=== PATIENT | female | born 1970 | race Caucasian/White ===

== ENCOUNTER 2018-10-22 17:25 | Emergency (ER) | payer SELFPAY ==
[~2018-10-22] VITALS: Ht 157.5 cm; Wt 72.6 kg
[2018-10-22] MEDS ORDERED: ONCE DAILY1 EACH PO (17:59)
== END 2018-10-22 19:16 | disposition home or self-care (01) ==
LOC: ED 17:25
DX: S93.601A Unspecified sprain of right foot, initial encounter (principal); X58.XXXA Exposure to other specified factors, initial encounter; Z88.0 Allergy status to penicillin; Z88.5 Allergy status to narcotic agent; Z88.2 Allergy status to sulfonamides; Z88.1 Allergy status to other antibiotic agents; Z79.899 Other long term (current) drug therapy
CPT/HCPCS: 73630; 99283

== ENCOUNTER 2020-12-09 20:34 | Emergency (ER) | payer SELFPAY ==
[~2020-12-09] VITALS: Ht 157.5 cm; Wt 78.0 kg
[~2020-12-09 20:34] MED LIST: ONCE DAILY1 EACH PO
[2020-12-10] MEDS ORDERED: ZOFRAN4 MG PO (00:08)
== END 2020-12-10 00:27 | disposition home or self-care (01) ==
LOC: ED 20:34
DX: U07.1 COVID-19 (principal); Z88.0 Allergy status to penicillin; Z88.5 Allergy status to narcotic agent; Z88.2 Allergy status to sulfonamides; Z88.1 Allergy status to other antibiotic agents
CPT/HCPCS: 99283; A9270; C9803; U0003

== ENCOUNTER 2024-05-26 20:06 | Emergency (ER) | payer SELFPAY ==
[~2024-05-26] VITALS: Ht 157.5 cm; Wt 82.0 kg
[~2024-05-26 20:06] MED LIST changes: +BENZONATATE200 MG PO; +ZITHROMAX250 MG PO; +ZOFRAN4 MG PO
[2024-05-26] MEDS ORDERED: IBUPROFEN 800 MG TAB PO ONE (20:45)
[2024-05-26] MEDS ORDERED: KETOROLAC TROMETHAMINE 60 MG/2 ML VIAL IM ONE (20:45)
[2024-05-26] MEDS ORDERED: HYDROCODONE/ACETA 7.5/325 TAB PO ONE (21:30)
[2024-05-26] MEDS ORDERED: HYDROCODONE BIT/ACETAMINOPHEN 5/325 MG 1 TAB HOME.PACK PO ONE (21:45)
[2024-05-26] MEDS ORDERED: HYDROCODON-ACE1 EA10 PO (21:45)
[2024-05-26 22:00] VITALS: BP 118/83
--- NOTE | 2024-05-27 10:59 | EKG ---
[facility] [address] [facility] [place], [place] [address] Signed Normal sinus rhythm Normal ECG No previous ECGs available Confirmed by Boston Jennings DO ([id number]) on 05/27/2024 10:59:16 AM Electronically Signed By: BOSTON JENNINGS DO 05/27/24 1059 PATIENT NAME: DAYANNA CORTEZ Electrocardiogram DATE OF : 68 PHYSICIAN: BOSTON JENNINGS DO REPORT #: [id number] REPORT IS CONFIDENTIAL AND NOT TO BE RELEASED WITHOUT AUTHORIZATION
== END 2024-05-26 22:02 | disposition home or self-care (01) ==
LOC: ED 20:06
DX: S20.211A Contusion of right front wall of thorax, initial encounter (principal); Z91.030 Bee allergy status; Z91.040 Latex allergy status; Z88.0 Allergy status to penicillin; Z88.5 Allergy status to narcotic agent; Z88.2 Allergy status to sulfonamides; W01.0XXA Fall on same level from slipping, tripping and stumbling without subsequent striking against object, initial encounter
CPT/HCPCS: 71045; 93005; 93010; 96372; 99283-25; A9270; J1885

== ENCOUNTER 2024-06-07 16:23 | Emergency (ER) | payer OTHER ==
[~2024-06-07] VITALS: Ht 157.5 cm; Wt 81.1 kg
[~2024-06-07 16:23] MED LIST changes: +HYDROCODON-ACE1 EA10 PO
--- OUTSIDE RECORDS SUMMARY | 2024-06-07 16:30 | XMS ---
PreManage Notification: DAYANNA CORTEZ [employer] Events No recent Security Events currently on file CRITERIA MET - [facility] - 2 Visits in 30 Days CARE PROVIDERS [facility] 05/07/2019-Current PHONE: [phone] Rob has no Care Guidelines for this patient. Melody VISIT COUNT (12 MO.) [address] [place] TOTAL 4 NOTE: Visits indicate total known visits. ED/UCC VISIT TRACKING (12 MO.) 06/07/2024 16:24 [facility] TYPE: Emergency COMPLAINT: - CHEST INJURY 05/26/2024 20:07 [facility] TYPE: Emergency COMPLAINT: - FALL/RIB PAIN DIAGNOSES: - Allergy status to narcotic agent - Allergy status to penicillin - Allergy status to sulfonamides - Bee allergy status - Contusion of right front wall of thorax, initial encounter - Fall on same level from slipping, tripping and stumbling without subsequent striking against object, initial encounter - Latex allergy status - Other chest pain 11/25/2023 21:06 [facility] TYPE: Emergency DIAGNOSES: - Adhesive capsulitis of unspecified shoulder - Unspecified injury of muscle(s) and tendon(s) of the rotator cuff of right shoulder, initial encounter - Unspecified injury of right shoulder and upper arm, initial encounter - R Shoulder Pain - Shoulder Injury 11/25/2023 19:28 [facility] [place] TYPE: Emergency DIAGNOSES: - Pain in right shoulder - SHOULDER PAIN INPATIENT VISIT TRACKING (12 MO.) No inpatient visits to display in this time frame [email or web address]
[2024-06-07] MEDS ORDERED: HYDROCODONE BIT/ACETAMINOPHEN 5/325 MG 1 TAB HOME.PACK PO ONE (19:30)
[2024-06-07] MEDS ORDERED: HYDROCODONE/ACETA 5/325 TAB PO ONE (19:30)
[2024-06-07] MEDS ORDERED: ONDANSETRON 4 MG TAB ODT SL ONE (19:30)
[2024-06-07 20:26] VITALS: BP 107/74
--- NOTE | 2024-06-08 17:59 | EKG ---
[facility] [address] [facility] [place] [address] Signed Sinus bradycardia Otherwise normal ECG When compared with ECG of 26-MAY-2024 21:17, No significant change was found Confirmed by Fco Jennings DO ([id number]) on 06/08/2024 5:58:54 PM Electronically Signed By: FCO JENNINGS DO 06/08/24 1759 PATIENT NAME: DAYANNA CORTEZ [place] Electrocardiogram DATE OF : 68 PHYSICIAN: FCO JENNINGS DO REPORT #: [id number] REPORT IS CONFIDENTIAL AND NOT TO BE RELEASED WITHOUT AUTHORIZATION
== END 2024-06-07 20:26 | disposition home or self-care (01) ==
LOC: ED 16:23
DX: S29.9XXA Unspecified injury of thorax, initial encounter (principal); W17.2XXA Fall into hole, initial encounter; Z88.0 Allergy status to penicillin; Z91.030 Bee allergy status; Z88.5 Allergy status to narcotic agent; Z88.1 Allergy status to other antibiotic agents; Z91.040 Latex allergy status
CPT/HCPCS: 71045; 71101; 93005; 93010; 99283; A9270

== ENCOUNTER 2024-10-29 18:30 | Emergency (ER) | payer OTHER ==
[~2024-10-29] VITALS: Ht 157.5 cm; Wt 75.0 kg
[2024-10-29] MEDS ORDERED: KETOROLAC TROMETHAMINE 60 MG/2 ML VIAL IM ONE (19:45)
[2024-10-29] MEDS ORDERED: CYCLOBENZAPRINE10 MG PO (20:54)
[2024-10-29] MEDS ORDERED: CELEBREX200 MG PO (20:54)
[2024-10-29] MEDS ORDERED: CYCLOBENZAPRINE HCL 10 MG HOME.PACK PO ONE (21:00)
[2024-10-29 21:17] VITALS: BP 131/88
== END 2024-10-29 21:17 | disposition home or self-care (01) ==
LOC: ED 18:30
DX: S76.012A Strain of muscle, fascia and tendon of left hip, initial encounter (principal); Z88.5 Allergy status to narcotic agent; Z88.0 Allergy status to penicillin; Z88.2 Allergy status to sulfonamides; Z88.1 Allergy status to other antibiotic agents; Z88.8 Allergy status to other drugs, medicaments and biological substances; Z91.040 Latex allergy status; Z91.030 Bee allergy status; X50.1XXA Overexertion from prolonged static or awkward postures, initial encounter
CPT/HCPCS: 72100; 73502; 96372; 99283-25; J1885